=== PATIENT | male | born 1980 | race Caucasian/White ===

== ENCOUNTER 2021-05-09 12:21 | Emergency (ER) | payer OTHER ==
[~2021-05-09] VITALS: Ht 180.3 cm; Wt 96.6 kg
[~2021-05-09 12:21] MED LIST: BUSPIRONE HCL10 MG PO; HYDROXYZINE HCL25 M1 PO; POTASSIUM20 PO
[2021-05-09] MEDS ORDERED: PROPRANOLOL 1010 MG PO (12:43)
[2021-05-09] MEDS ORDERED: PROZAC20 MG PO (12:43)
[2021-05-09 14:38] LABS: ABSOLUTE BASOPHILS 0.1 thou/uL (0.0-0.2); ABSOLUTE MONOCYTES 0.4 thou/uL (0.0-1.2); ABSOLUTE NEUTROPHILS 6.5 thou/uL (1.6-8.1); BASOPHILS 0.9 %; EOSINOPHILS 0.5 %; HEMATOCRIT 49.6 % (42.0-52.0); LYMPHOCYTES 12.6 %; MCH 30.2 pg (26.0-34.0); MCHC 34.2 g/dL (28.0-37.0); MCV 88.3 fL (80.0-100.0); MONOCYTES 4.6 %; MPV 8.5 fl. (7.2-11.1); NUCLEATED RBCS 0 /100WBC; PLATELET COUNT* 246 thou/uL (150-400); POLYS 81.4 %; RBC 5.62 mil/uL (4.50-6.00); RDW-CV 12.7 % (10.5-14.5); WBC 7.9 thou/uL (4.0-11.0)
--- NOTE | 2021-05-09 14:45 | EKG ---
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: [facility] : 1980 Requested By: Nu Richards Order Number: [id number] MD: Gurpreet Liang Measurements Intervals [place] Rate: 63 P: 51 [place]: 165 QRS: -1 QRSD: 97 T: 24 QT: 385 QTc: 395 Interpretive Statements Sinus rhythm Compared to ECG 11/13/2016 18:45:23 No significant changes Electronically Signed On 05-09-2021 14:45:26 CDT by Gurpreet Liang [email or web address] <ELECTRONICALLY SIGNED> By: Gurpreet Liang MD, [facility] 05/09/21 1445 1358 1358 Gurpreet Liang MD, [facility] /EPI
[2021-05-09 15:06] LABS: CALCIUM 9.3 mg/dL (8.5-10.1); CREATININE 1.1 mg/dL (0.6-1.3); POTASSIUM 4.2 mmol/L (3.5-5.1)
[2021-05-09 15:07] LABS: URINE BILIRUBIN NEGATIVE (Negative); URINE BLOOD NEGATIVE (Negative); URINE CLARITY CLEAR; URINE COLOR YELLOW; URINE GLUCOSE-RANDOM NEGATIVE (Negative); URINE KETONES NEGATIVE (Negative); URINE LEUKOCYTES-REFLEX NEGATIVE (Negative); URINE NITRITE-REFLEX NEGATIVE (Negative); URINE PROTEIN NEGATIVE (Negative); URINE SPECIFIC GRAVITY <= 1.005 (1.005-1.030); URINE UROBILINOGEN 0.2 E.U./dl (0.2-1.0)
[2021-05-09 15:11] LABS: ALBUMIN 4.8 g/dL (3.4-5.0); TOTAL PROTEIN 8.1 g/dL (6.4-8.2)
[2021-05-09 15:15] LABS: AMP/METHAMP Negative (Negative); BARBITURATES Negative (Negative); BENZODIAZEPINES Negative (Negative); COCAINE Negative (Negative); METHADONE Negative (Negative); OPIATES Negative (Negative); PCP Negative (Negative); THC Negative (Negative)
[2021-05-09] MEDS ORDERED: TRANSDERM-SCOP1 EACH TRANSDERM (15:54)
[2021-05-09] MEDS ORDERED: MECLIZINE HCL25 M1 PO (15:54)
[2021-05-09 16:04] VITALS: BP 126/65
== END 2021-05-09 16:04 | disposition home or self-care (01) ==
LOC: M.ERS 12:21
PROVIDERS: Physician Assistant
DX: R42 Dizziness and giddiness (principal); R07.89 Other chest pain; Z90.89 Acquired absence of other organs; Z88.8 Allergy status to other drugs, medicaments and biological substances